=== PATIENT | female | born 1995 | race Caucasian/White ===

== ENCOUNTER → 2017-01-23 | Outpatient (CLI) | payer OTHER ==
[~2017-01-23] MED LIST: ALBUTEROL17 GM; ALBUTEROL17 GM IH; ATARAX PO; BACITRACIN15 GM TP; CITALOPRAM HBR40 MG PO; DESYREL50 MG PO; HYDROXYZINE HCL10 MG PO; KEFLEX500 MG PO; NAPROSYN500 MG PO; NO MEDICATIONS; NORCO 10-325 TA1 TAB PO; PRENATAL1 TA1 PO; ROBAXIN PO; VICKS NYQUIL C236 ML PO
--- NOTE | ~2017-01-23 | CR172 ---
[facility] A Service of [facility] & [facility] RADIOLOGY TEXT RESULTS PATIENT: RUDI CEE LOCATION: [facility] : [birth year] UNIT #: [id number] AGE: [address]: ARLENE MCINTOSH MD SEX: F ORDER DR: [id number] [facility]. [place], [place] [address] [id number] O MR#: [id number] Acc #: [id number] NAME: RUDI CEE : 1995 SEX: F STUDY DATE/TIME: 01/23/2017 18:12 UNIT: [facility] ROOM: STUDY DESCRIPTION: CR Knee 3 Views Lt Attending Physician: Arlene Mcintosh M.D. Referring Physician: Arlene Mcintosh M.D. Ordering Physician: Arlene Mcintosh M.D. Primary Care Physician: Arlene Mcintosh M.D. MEDICAL IMAGING REPORT This report is preliminary unless electronic signature is present EXAM Left knee 3 views, 01/23/2017 HISTORY Left knee pain and throbbing for 4 months, worsening. No known injury. FINDINGS AP and lateral projection of the knee shows smooth articular anatomy without indication of fracture or dislocation at the major weight-bearing surface of the knee. There is no indication of radiopaque foreign body about the knee surface or joint effusion. IMPRESSION Normal left knee. Dictated by... Castro Thomas M.D. THIS IS AN ELECTRONICALLY VERIFIED REPORT Castro Thomas M.D. at 01/25/2017 7:54 AM Layo TD: 01/24/2017 13:18 JOB #: [id number] MEDICAL IMAGING REPORT COPY
== END | disposition home or self-care (01) ==
LOC: CRAD 17:58
DX: M25.562 Pain in left knee (principal)
CPT/HCPCS: 73562

== ENCOUNTER → 2017-01-31 | Outpatient (CLI) | payer OTHER ==
--- NOTE | ~2017-01-31 | MR97 ---
[facility] A Service of [facility] RADIOLOGY TEXT RESULTS PATIENT: RUDI CEE LOCATION: [facility] : [birth year] UNIT #: [id number] AGE: [address]: ARLENE MCINTOSH MD SEX: F ORDER DR: [id number] [id number] [facility]. [place], [place] [address] [id number] O MR#: [id number] Acc #: [id number] NAME: RUDI CEE : 1995 SEX: F STUDY DATE/TIME: 01/31/2017 13:42 UNIT: [facility] ROOM: STUDY DESCRIPTION: MR Knee Arthrogram Lt Attending Physician: Arlene Mcintosh M.D. Ordering Physician: Arlene Mcintosh M.D. Primary Care Physician: Arlene Mcintosh M.D. MRI CENTER REPORT This report is preliminary unless electronic signature is present. EXAM MRI arthrogram left knee, 01/31/2017 COMPARISON Left knee arthrogram 01/31/2017, left knee radiographs 01/23/2017. HISTORY Order states left knee pain. History sheet states fell on the job approximately April 2013. Had physical therapy then and no improvement. X-rays only. Endured pain until now and started increasing pain 5 months ago. Steps are difficult. Lateral pain is the greatest. Pain anterior and posteriorly. Weightbearing difficult. No knee surgery. FINDINGS Multiple series were performed after the fluoroscopic injection of dilute gadolinium contrast. There is no popliteal cyst. Patellofemoral alignment is within normal limits. There is a subtle full-thickness chondral fissure of the inferior aspect of the medial patellar facet compatible with focal chondromalacia. The remainder of the patellofemoral articular cartilage is within normal limits. Quadriceps and patellar tendons are intact. Cruciate ligaments are intact. Menisci, collateral ligaments, and popliteus tendon are intact. Articular cartilage of the medial and lateral compartments is normal. There is no marrow lesion, fracture, or sizeable loose body identified. [facility] A Service of [facility] RADIOLOGY TEXT RESULTS PATIENT: RUDI CEE LOCATION: [facility] : [birth year] UNIT #: [id number] AGE: [address]: ARLENE MCINTOSH MD SEX: F ORDER DR: The small focus of chondromalacia in the inferior medial patellar facet and may be associated with a tiny chondral flap. IMPRESSION 1. Full-thickness small chondral fissure of the inferior peripheral aspect of the medial patellar facet could be secondary to chondromalacia and/or sequela of chondral injury. There is a potential adjacent small approximate 4.0 mm chondral flap or fragment adjacent to the lesion. 2. Cruciate ligaments and menisci are within normal limits. 3. Exam is otherwise normal. Dictated by... Radha Cleaning M.D. THIS IS AN ELECTRONICALLY VERIFIED REPORT Radha Cleaning M.D. at 02/02/2017 2:40 PM Tony TD: 02/01/2017 15:57 JOB #: [id number] MRI CENTER REPORT Page 1 of 1 COPY
--- NOTE | ~2017-01-31 | XA42 ---
[facility] A Service of [facility] & [facility] RADIOLOGY TEXT RESULTS PATIENT: RUDI TERRELL LOCATION: [facility] : 93 UNIT #: [id number] AGE: [address]: ARLENE MCINTOSH MD SEX: F ORDER DR: [id number] [address] [place], [place] [address] [id number] O MR#: [id number] Acc #: [id number] NAME: RUDI TERRELL : 1995 SEX: F STUDY DATE/TIME: 01/31/2017 13:14 UNIT: [facility] ROOM: STUDY DESCRIPTION: XA Arthrogram Knee Lt Attending Physician: Arlene Mcintosh M.D. Ordering Physician: Arlene Mcintosh M.D. Primary Care Physician: Arlene Mcintosh M.D. MEDICAL IMAGING REPORT This report is preliminary unless electronic signature is present EXAM Left knee arthrogram INDICATIONS 21-year-old female with left knee pain. Fluoro time 3 minutes. Reference air kerma 36 mGy. Risks, benefits and alternatives of the procedure discussed with the patient. Informed consent was obtained. In the procedure room a time-out was performed confirming correct patient and procedure. All elements of maximum sterile-barrier technique utilized according guidelines appropriate for the procedure. TECHNIQUE/FINDINGS The skin overlying the left knee prepped and draped in the usual sterile fashion. 1% lidocaine utilized to anesthetize the skin and underlying subcutaneous tissues. Next, using lateral patellar approach a 22-gauge needle was advanced into the knee joint space. Small amount of contrast was injected confirming satisfactory positioning. Next, 20 mL of a mixture of 10 mL of iodinated contrast, 10 mL lidocaine, and 0.2 mL of gadolinium was injected into the knee joint space under fluoroscopic guidance. The needle was removed and a sterile dressing was applied. There are no immediate complications. 3 spot images were taken. IMPRESSION Successful left knee arthrogram in preparation for MR arthrography. Dictated by... Link Terrell M.D. THIS IS AN ELECTRONICALLY VERIFIED REPORT [facility] A Service of [facility] & [facility] RADIOLOGY TEXT RESULTS PATIENT: RUDI TERRELL LOCATION: [facility] : [birth year] UNIT #: [id number] AGE: [address]: ARLENE MCINTOSH MD SEX: F ORDER DR: Link Terrell M.D. at 02/01/2017 11:32 AM Isidra TD: 02/01/2017 07:54 JOB #: [id number] MEDICAL IMAGING REPORT Page 1 of 1 COPY
--- NOTE | ~2017-01-31 | MY6 ---
[facility] A Service of [facility] & [facility] RADIOLOGY TEXT RESULTS PATIENT: RUDI CEE LOCATION: [facility] : [birth year] UNIT #: [id number] AGE: [address]: ARLENE MCINTOSH MD SEX: F ORDER DR: [id number] [facility] [address] [facility]. [place], [place] [address] [id number] O MR#: [id number] Acc #: [id number] NAME: RUDI CEE : 1995 SEX: F STUDY DATE/TIME: 01/31/2017 15:11 UNIT: [facility] ROOM: STUDY DESCRIPTION: MY Mammogram Dx Dig Alfonso Attending Physician: Arlene Mcintosh M.D. Ordering Physician: Arlene Mcintosh M.D. Primary Care Physician: Arlene Mcintosh M.D. MEDICAL IMAGING REPORT This report is preliminary unless electronic signature is present EXAM Bilateral digital diagnostic mammogram with CAD and targeted bilateral breast ultrasound 01/31/2017 INDICATIONS 21-year-old female complaining of palpable abnormalities in both breasts in both upper hemispheres, bilateral nipple discharge and pain. Symptoms for the past 3-6 months. No prior surgeries. No personal history of breast cancer. Family history positive in the patient's mother in her mid 20s. TECHNIQUE MLO views of both breasts were obtained and reviewed with an approved CAD device. Single views of each breast were obtained given the patient's age of 21 years, rather than standard diagnostic views bilaterally. Following the mammographic portion of the study targeted ultrasound of both breasts was performed in the areas of patient pain symptoms and in the subareolar aspects of both breasts given the complaints of bilateral nipple discharge. We have no comparisons. This is her baseline. MAMMOGRAM FINDINGS The breast parenchyma is fatty replaced. There is no dominant nodule, mass or suspicious cluster if microcalcifications. No adenopathy, skin thickening or architectural distortion. Subareolar aspects of both breasts appear negative. Markers overlie the areas of palpable concern bilaterally. These localize to the upper hemispheres bilaterally and in the posterior nipple line on the right. Subjacent to the markers no mammographic abnormalities are identified. Ultrasound was thereafter performed. ULTRASOUND FINDINGS The patient was initially scanned independently by the technologist and STS. [facility] A Service of [facility] & [facility] RADIOLOGY TEXT RESULTS PATIENT: RUDI CEE LOCATION: [facility] : [birth year] UNIT #: [id number] AGE: [address]: ARLENE MCINTOSH MD SEX: F ORDER DR: then rescanned in my presence. RIGHT BREAST: Imaging of the area patient palpable concern and pain symptoms was performed on the right. This included the 3 o'clock position, 1 o'clock position and 10 o'clock position. Limited physical exam (with patient consent) was also performed in these areas and was negative. Ultrasound of these areas was negative as well. Imaging findings are concordant with mammography. Imaging of the subareolar right breast was performed and negative. The patient is unaware of the collar of the discharge on the right but says there has been present for 6 months. Imaging of the subareolar right breast mammotomy and with ultrasound is negative. LEFT BREAST: Imaging of the area of patient pain symptoms and palpable concern was performed. This localizes to the 1 o'clock position and physical exam (with patient consent) was performed and is negative. Imaging of the subareolar left breast was performed and is also negative. Patient is unable to describe the color of the discharge on the left as well. Regardless, mammographic and ultrasound findings on the left are concordant and negative. Absent new or worsening symptoms in either breast, clinical considerations should determine additional imaging at this time. The patient was counseled to plan on beginning a screening mammography regimen at age 40 or sooner based upon risk factors for malignancy. Given the history of the first tibia relative with breast cancer before for age 40, consideration of initiation of a screening mammography regimen before age 40 is recommended. This was discussed with the patient and she voiced understanding agreement. IMPRESSION 1. Negative bilateral diagnostic mammogram and negative bilateral targeted ultrasound of the breasts. Clinical considerations to determine additional imaging at this point. See discussion above. . Patients over the age of 40 are entered into a reminder system with target due date for the next mammogram. A result letter will also be sent to the patient. BIRADS: 1 - negative Dictated by... Singh Trejo M.D. THIS IS AN ELECTRONICALLY VERIFIED REPORT Singh Trejo M.D. at 02/01/2017 1:04 PM [facility] A Service of [facility] & [facility] RADIOLOGY TEXT RESULTS PATIENT: RUDI CEE LOCATION: [facility] #: [id number] : [birth year] UNIT #: [id number] AGE: [address]: ARLENE MCINTOSH MD SEX: F ORDER DR: MELANY/amanda TD: 02/01/2017 07:23 JOB #: [id number] MEDICAL IMAGING REPORT Page 1 of 1 COPY
--- NOTE | ~2017-01-31 | US17 ---
[facility] A Service of [facility] & [facility] RADIOLOGY TEXT RESULTS PATIENT: RUDI CEE LOCATION: [facility] : [birth year] UNIT #: [id number] AGE: [address]: ARLENE MCINTOSH MD SEX: F ORDER DR: [id number] [id number] [facility]. [place], [place] [address] [id number] O MR#: [id number] Acc #: [id number] NAME: RUDI CEE : 1995 SEX: F STUDY DATE/TIME: 01/31/2017 15:26 UNIT: [facility] ROOM: STUDY DESCRIPTION: US Breast Bilateral Attending Physician: Arlene Mcintosh M.D. Ordering Physician: Arlene Mcintosh M.D. Primary Care Physician: Arlene Mcintosh M.D. MEDICAL IMAGING REPORT This report is preliminary unless electronic signature is present EXAM Targeted ultrasound of both breasts, 01/31/2017. FINDINGS Please see report from the bilateral diagnostic mammogram, same date, for findings. BIRADS: 1 Negative. Dictated by... Singh Trejo M.D. THIS IS AN ELECTRONICALLY VERIFIED REPORT Singh Trejo M.D. at 02/01/2017 1:04 PM MELANY/aaron TD: 02/01/2017 08:27 JOB #: [id number] MEDICAL IMAGING REPORT Page 1 of 1 COPY
== END | disposition home or self-care (01) ==
LOC: CIVR 12:34
PROC: BQ38YZZ Magnetic Resonance Imaging (MRI) of Left Knee using Other Contrast (ICD-10-PCS; principal; 2017-01-31)
DX: S83.32XA Tear of articular cartilage of left knee, current, initial encounter (principal); M95.8 Other specified acquired deformities of musculoskeletal system; N63 Unspecified lump in breast; N64.52 Nipple discharge; C50.919 Malignant neoplasm of unspecified site of unspecified female breast; Z85.3 Personal history of malignant neoplasm of breast
CPT/HCPCS: 73580; 73722; 76641; 77002; A9577; G0204; Q9967